=== PATIENT | female | born 1980 | race Caucasian/White ===

== ENCOUNTER 2016-06-18 16:10 | Emergency (ER) | payer OTHER, MEDICAID ==
[~2016-06-18] VITALS: Ht 177.8 cm; Wt 105.0 kg
[~2016-06-18 16:10] MED LIST: IBUP-238 PO; OXYC-360 PO; PREN0.01
[2016-06-18 16:13] VITALS: BP 168/96; PULSE 123; RESP 17; TEMP 98.8; O2SAT 98
--- NOTE | 2016-06-18 17:25 | PD ---
HPI Chief Complaint: Eye Problems/Injury Time Seen by Provider: 17:23 Travel History International Travel<30 days: No Contact w/Intl Traveler<30days: No Traveled to known affect area: No History of Present Illness HPI 36-year-old female presents to the emergency Department with complaint of burning sensation to her left eye since last night after being diagnosed with shingles on . The patient is taking acyclovir that was prescribed by [facility]. She was given 2 doses on in the ER, and then started the medication yesterday as prescribed. She denies change in vision. Reports clear drainage from the eye. Denies fever, chills, nausea, vomiting. Allergies to Harrison. No other modifying factors or associated signs and symptoms. PFSH Past Medical History Diminished Hearing: No ?: Not LMP: 06/18/16 : 2 Para: 1 Social History Alcohol Use: No Tobacco Use: No Allergies-Medications (Allergen,Severity, Reaction): Coded Allergies: Harrison (Verified Allergy, Severe, Rash, 06/18/16) Reported Meds & Prescriptions Reported Meds & Active Scripts Active Ibuprofen 800 Mg Tab 800 Mg PO Q6HR PRN Review of Systems Except as stated in HPI: all other systems reviewed are Neg Physical Exam Narrative GENERAL: Well-nourished, well-developed patient, in no acute distress; afebrile , nontoxic-appearing SKIN: Warm and dry. Vesicular lesions to left upper and lower lips and left facial cheek; all in different stages of healing. No signs of infection noted. No drainage noted. HEAD: Atraumatic. Normocephalic. EYES: Pupils equal and round at 3 mm with brisk reaction. PERRLA. EOMI. visual acuity 20/20 left; 20/20 right; 20/20 bilateral. Left lid eversion with no foreign body noted. Left eye without scleral erythema; with mild lid edema upper and lower. No orbital tenderness, erythema or cellulitis. Left eye without photophobia. No consensual photophobia. No scleral icterus. Clear drainage noted. Lawrence lamp exam normal. ENT: Mucosa pink and moist. Airway patent. NECK: Trachea midline. CARDIOVASCULAR: Regular rate. RESPIRATORY: No accessory muscle use. GASTROINTESTINAL: Rounded. NEUROLOGICAL: Awake and alert. Oriented 3. No obvious cranial nerve deficits. Motor grossly within normal limits. Normal speech. PSYCHIATRIC: Appropriate mood and affect; insight and judgment normal. Data Data Last Documented VS Vital Signs Date Time Temp Pulse Resp B/P Pulse Ox O2 Delivery O2 Flow Rate FiO2 06/18/16 16:13 98.8 123 17 168/96 98 Orders Proparacaine 0.5% Opth Soln (Alcaine 0.5 (06/18/16 17:30) MDM Medical Decision Making Medical Screen Exam Complete: Yes Emergency Medical Condition: Yes Medical Record Reviewed: Yes Differential Diagnosis Shingles, herpetic keratitis, contact dermatitis Narrative Course 36-year-old female currently being treated with acyclovir for shingles outbreak to her left face. This concerned of left eye secondary to burning sensation that started last night. Left eye exam is unremarkable. Visual acuity is 20/ 20 and patient denies change in vision. Lawrence lamp exam is unremarkable. I spoke with Dr. Omer, my attending physician, and she recommended to call ophthalmology for recommendation. [id number]: Call placed to Dr. Ramsey, ophthalmology. 1800: I spoke with Dr. Ramsey, ophthalmology and she recommended for the patient to continue the oral acyclovir and to follow-up with her in her office. Instructed patient to continue oral acyclovir and she verbalized understanding and agreement with treatment plan. Discussed reasons to return to the emergency department and to follow-up with ophthalmology. Patient verbalizes understanding and agreement. Instructed patient to follow up with wafer cutter for further treatment and evaluation. Ibuprofen prescribed for home. Patient is medically cleared and stable for discharge. Discussed reasons to return to the emergency department. Instructed patient to follow up with primary care provider. Patient agrees with treatment plan. The patients vital signs are stable and the patient is stable for outpatient follow-up and treatment. Patient discharged home, stable and in no acute distress. Diagnosis Primary Impression: Shingles outbreak Qualified Code: B02.9 - Herpes zoster without complication Additional Impression: Left eye pain Referrals: Leilani Ramsey MDmanager metrology Primary Care Physician Patient Instructions: General Instructions, Shingles (ED) Departure Forms: Tests/Procedures, Work Release Enter return to work date: Jun 22, 2016 Additional Instructions: Ibuprofen or Tylenol as directed and as needed to reduce pain Do not rub the eye Refrigerated eye drops as needed to reduce pain Cool compresses to the eye as needed to reduce pain Follow-up with ophthalmology Primary care provider Return to the emergency department immediately with worsening of symptoms Med/Other Pt SpecificInfo: No Change to Meds Scripts Ibuprofen 800 Mg Uge500 Mg PO Q6HR PRN (PAIN) #30 TAB Ref 0 Prov:Unique Mehta 06/18/16 Disposition: 01 DISCHARGE HOME Condition: Stable Unique Mehta Jun 18, 2016 17:25
[2016-06-18] MEDS ORDERED: PROPARACAINE HCL 0.5% OPHT SOLN 15 ML BTL LEFT EYE ONE (17:30)
[2016-06-18] MEDS ORDERED: IBUP800T23 PO (18:02)
== END 2016-06-18 18:15 | disposition home or self-care (01) ==
LOC: NEPB 16:10
DX: B02.9 Zoster without complications (principal); H57.12 Ocular pain, left eye
CPT/HCPCS: 99283